=== PATIENT | female | born 1945 | race Two or more races ===

== ENCOUNTER 2021-12-31 14:27 | Inpatient (IN) | payer OTHER ==
[~2021-12-31] VITALS: Ht 165.1 cm; Wt 66.7 kg
[2021-12-31] MEDS ORDERED: COZAAR50 MG (14:55)
[2021-12-31] MEDS ORDERED: ADULT LOW DOSE81 M1 (14:56)
[2022-01-01] MEDS ORDERED: HYDROCHLOROTHIA25 MG (16:23)
[2022-01-01] MEDS ORDERED: PANTOPRAZOLE SO40 MG (16:23)
== END 2022-02-19 18:28 | disposition home or self-care (01) | DRG 329 ==
LOC: ER 14:27 → SURH 22:20 → MEDJ 22:20 → SURH 01-01 02:51
PROVIDERS: Surgery; ADMIT Internal Medicine; ATTEND Internal Medicine
PROC: 30233N1 Transfusion of Nonautologous Red Blood Cells into Peripheral Vein, Percutaneous Approach (ICD-10-PCS; 2022-01-01)
PROC: 02HV33Z Insertion of Infusion Device into Superior Vena Cava, Percutaneous Approach (ICD-10-PCS; 2022-01-02)
PROC: 30243N1 Transfusion of Nonautologous Red Blood Cells into Central Vein, Percutaneous Approach (ICD-10-PCS; 2022-01-02)
PROC: 3E0436Z Introduction of Nutritional Substance into Central Vein, Percutaneous Approach (ICD-10-PCS; 2022-01-05)
PROC: 0D9670Z Drainage of Stomach with Drainage Device, Via Natural or Artificial Opening (ICD-10-PCS; 2022-01-10)
PROC: 0D1B4Z4 Bypass Ileum to Cutaneous, Percutaneous Endoscopic Approach (ICD-10-PCS; principal; 2022-01-30 10:00)
DX: K63.2 Fistula of intestine (principal); N32.1 Vesicointestinal fistula; K57.20 Diverticulitis of large intestine with perforation and abscess without bleeding; K65.1 Peritoneal abscess; N39.0 Urinary tract infection, site not specified; E51.2 Wernicke's encephalopathy; F05 Delirium due to known physiological condition; E86.0 Dehydration; E87.6 Hypokalemia; R53.81 Other malaise; D64.9 Anemia, unspecified; I10 Essential (primary) hypertension; B96.20 Unspecified Escherichia coli [E. coli] as the cause of diseases classified elsewhere
CPT/HCPCS: 70553

== ENCOUNTER 2022-03-11 08:55 | Inpatient (IN) | payer OTHER ==
[~2022-03-11] VITALS: Ht 152.4 cm; Wt 84.4 kg
[~2022-03-11 08:55] MED LIST: ADULT LOW DOSE81 M1; COZAAR50 MG; HYDROCHLOROTHIA25 MG; PANTOPRAZOLE SO40 MG
== END 2022-03-25 09:14 | disposition home or self-care (01) | DRG 682 ==
LOC: ER 08:55 → MEDI 17:27 → MEDJ 03-23 01:43
PROVIDERS: ADMIT Internal Medicine; ATTEND Internal Medicine
PROC: 4A12X4Z Monitoring of Cardiac Electrical Activity, External Approach (ICD-10-PCS; principal; 2022-03-11)
PROC: BW21ZZZ Computerized Tomography (CT Scan) of Abdomen and Pelvis (ICD-10-PCS; 2022-03-11)
DX: N17.8 Other acute kidney failure (principal); A41.89 Other specified sepsis; R65.20 Severe sepsis without septic shock; U07.1 COVID-19; N39.0 Urinary tract infection, site not specified; E87.0 Hyperosmolality and hypernatremia; E51.2 Wernicke's encephalopathy; N32.1 Vesicointestinal fistula; I95.89 Other hypotension; E86.0 Dehydration; I10 Essential (primary) hypertension; B95.62 Methicillin resistant Staphylococcus aureus infection as the cause of diseases classified elsewhere; I25.10 Atherosclerotic heart disease of native coronary artery without angina pectoris; K52.89 Other specified noninfective gastroenteritis and colitis

== ENCOUNTER 2022-08-21 16:20 | Inpatient (IN) | payer OTHER ==
[~2022-08-21] VITALS: Ht 165.1 cm; Wt 45.4 kg
--- NOTE | 2022-08-21 16:37 | NUR ---
PACIENTE ALERTA Y ORIENTADA X3. ACOMPANADA DE DELGADO HIJA CUAL REFIERE QUE DELGADO MADRE TIENE FALTA DE APPETITO DESDE HACE 2 VASQUEZ.
[2022-08-21] MEDS ORDERED: LOPRESSOR25 MG PO (16:40)
--- NOTE | 2022-08-21 18:14 | NUR ---
PTE EVALUADO POR MD MENDOZA ORDENA TX MED SE EDUCA A PTE SOBRE EL MISMO Y REFEIRE ENTNEDER. MS SUDEEP EJECUTA ORDENES BAJO MEDIDAS ACEPTICAS. PTE PEND A RESULTADOS DE LAB.
--- NOTE | 2022-08-21 21:09 | NUR ---
SE CATETERIZA PTE BAJO MEDIDAS ASEPTICAS PARA MUESTRA DE UA SHANTA ORDEN MEDICA,ORINA AMARILLA RICK CON SEDIMENTACION.SE INTENTA EN 2 OCASIONES EXTRAER MUESTRAS DE NORMA SIN EXITO,SE NOTIFICA A DR HITCHCOCK QUIEN ORDENA INCREMENTAR LOS LIQUIDOS.SE EJECUTA ORDEN MEDICA.
[2022-08-24] MEDS ORDERED: DONEPEZIL HCL5 MG (15:15)
[2022-08-24] MEDS ORDERED: THIAMINE HCL100 MG (15:15)
[2022-08-28] MEDS ORDERED: APETIGEN P12.5 MG/15 PO (10:04)
[2022-08-28] MEDS ORDERED: VITAMIN B-121000 MC2 SL (10:05)
== END 2022-08-28 11:00 | disposition home or self-care (01) | DRG 641 ==
LOC: ER 16:20 → MEDI 08-22 19:22
PROVIDERS: ADMIT Internal Medicine; ATTEND Internal Medicine
PROC: BW21ZZZ Computerized Tomography (CT Scan) of Abdomen and Pelvis (ICD-10-PCS; principal; 2022-08-22)
PROC: 4A12X4Z Monitoring of Cardiac Electrical Activity, External Approach (ICD-10-PCS; 2022-08-24)
PROC: B54MZZZ Ultrasonography of Right Upper Extremity Veins (ICD-10-PCS; 2022-08-25)
DX: E86.0 Dehydration (principal); N17.8 Other acute kidney failure; Z68.1 Body mass index [BMI] 19.9 or less, adult; N39.0 Urinary tract infection, site not specified; K63.2 Fistula of intestine; E87.6 Hypokalemia; R63.0 Anorexia; I10 Essential (primary) hypertension; Z93.2 Ileostomy status

== ENCOUNTER 2023-01-30 04:22 | Emergency (ER) | payer OTHER ==
[~2023-01-30] VITALS: Ht 147.3 cm; Wt 59.0 kg
[~2023-01-30 04:22] MED LIST changes: +APETIGEN P12.5 MG/15 PO; +DONEPEZIL HCL5 MG; +LOPRESSOR25 MG PO; +THIAMINE HCL100 MG; +VITAMIN B-121000 MC2 SL
== END 2023-01-30 07:54 | disposition home or self-care (01) ==
LOC: ER 04:22
DX: R10.9 Unspecified abdominal pain (principal); Z85.038 Personal history of other malignant neoplasm of large intestine; Z93.3 Colostomy status

== ENCOUNTER 2023-02-14 09:04 | Outpatient (CLI) | payer OTHER | END 2023-02-14 09:10 | disposition home or self-care (01) | LOC: TOM 09:04 | PROVIDERS: ATTEND Colon & Rectal Surgery | DX: K57.20 Diverticulitis of large intestine with perforation and abscess without bleeding (principal) ==

== ENCOUNTER 2023-10-14 11:52 | Outpatient (CLI) | payer OTHER ==
[2023-10-14 14:39] LABS: CREATININE SERUM 1.52 mg/dL (0.55-1.02)
== END 2023-10-14 11:57 | disposition home or self-care (01) ==
LOC: LAB 11:52
PROVIDERS: ATTEND Radiology Diagnostic Radiology
DX: K57.20 Diverticulitis of large intestine with perforation and abscess without bleeding (principal)

== ENCOUNTER 2023-10-20 09:38 | Outpatient (CLI) | payer OTHER | END 2023-10-20 09:42 | disposition home or self-care (01) | LOC: TOM 09:38 | PROVIDERS: ATTEND Colon & Rectal Surgery | DX: K57.20 Diverticulitis of large intestine with perforation and abscess without bleeding (principal) | CPT/HCPCS: 74177; Q9965 ==

== ENCOUNTER 2024-09-30 14:31 | Inpatient (IN) | payer OTHER ==
[~2024-09-30] VITALS: Ht 162.6 cm; Wt 45.4 kg
--- NOTE | 2024-09-30 15:01 | NUR ---
NUERA ADI PACIENTE PORQUE LA PACIENTE NO QUIERE COMER. LA MISMA CON COLOSTOMIA EN EL LADO DERECHO LA MISMA REFIERE QUE TAMBIEN LA PACIENTE "ESTA EVACUANDO POR EL ANO"
[2024-09-30] MEDS ORDERED: FOLIC ACID (15:57)
[2024-09-30] MEDS ORDERED: PROTONIX40 MG (15:57)
[2024-09-30] MEDS ORDERED: MEMANTINE HCL E28 MG (15:57)
[2024-09-30] MEDS ORDERED: TOPROL XL25 M1 (15:57)
[2024-09-30] MEDS ORDERED: VITAMIN B12500 MCG (15:58)
[2024-09-30] MEDS ORDERED: 0.9 % SODIUM CHLORIDE 500 ML IV STA ×2 (16:19→16:20)
[2024-09-30 17:25] LABS: HEMATOCRIT 37.3 % (36.0-45.00); HEMOGLOBIN 12.2 g/dL (12.0-15.00); MEAN CELL VOLUME 94.2 fL (80.00-100.00); MEAN CORPUSCULAR HEMOGLOBIN 30.7 pg (27.00-32.0); MEAN CORPUSCULAR HGB CONC 32.6 g/dl (32.0-36.0); PLATELET COUNT 204 K/uL (150-450); RED BLOOD COUNT 3.96 M/uL (4.00-6.00); RED CELL DISTRIBUTION WIDTH 14.5 % (11.5-14.5)
--- NOTE | 2024-09-30 17:25 | NUR ---
PTE DESORIENTADA, SE LE BELA MUESTRAS DE LABORATORIO, SE CANALIZA Y SE ADMINISTRAN IV FLUIDS, SE INSERTA CASTRO CATHETER Y SE JO ANN MUESTRA DE ORINA.
[2024-09-30 17:46] LABS: INR 1.11; PARTIAL THROMBOPLASTIN TIME 27.4 SECONDS (22.0-34.0)
[2024-09-30 17:50] LABS: ALBUMIN 2.9 gm/dL (3.4-5.0); BILIRUBIN TOTAL 0.66 mg/dL (0.3-1.2); CALCIUM 9.2 mg/dL (8.5-10.1); CREATININE SERUM 2.14 mg/dL (0.55-1.02); GFR 22.29; GLOBULINA 4.3 G/DL (2.4-3.5); POTASSIUM 5.45 mEq/L (3.5-5.1); TOTAL PROTEIN 7.2 gm/dL (6.4-8.2)
[2024-09-30 18:23] LABS: PH,URINE 5.5 (5.0-8.0); URINE APPEARANCE Cloudy; URINE BILIRRUBIN Negative (NEGATIVE); URINE BLOOD Small; URINE COLOR Dark Yellow; URINE GLUCOSE Negative (NEGATIVE); URINE KETONE Negative (NEGATIVE); URINE LEUKOCYTE Moderate; URINE NITRATE Negative; URINE PROTEIN 30 (NEGATIVE); URINE UROBILINOGEN 0.2 E.U./dl
[2024-09-30 18:27] LABS: URINE CAST 3.53 uL (0.0-1.40); URINE EPITHELIAL CELLS 12.8 uL (0.0-38.8); URINE RBC 26.6 uL (0.0-20.8); URINE WBC 787.6 uL (0.0-23.2)
[2024-09-30 19:01] LABS: URINE BACTERIA > 9821.5 uL (0.0-1933); URINE MUCUS MODERATE
[2024-09-30] MEDS ORDERED: CEFTRIAXONE SODIUM 2,000 MG in 0.9 % SODIUM CHLORIDE 100 ML IV SCH (22:12)
[2024-09-30] MEDS ORDERED: LOPERAMIDE HCL 2 MG CAPSULE PO SCH (22:12)
[2024-09-30] MEDS ORDERED: FAMOTIDINE/PF 20 MG in 0.9 % SODIUM CHLORIDE 8 ML IV PUSH SCH (22:13)
[2024-09-30] MEDS ORDERED: ATORVASTATIN CALCIUM 40 MG TABLET PO SCH (22:13)
[2024-09-30] MEDS ORDERED: ASPIRIN 81 MG TAB.CHEW PO SCH (22:13)
[2024-09-30] MEDS ORDERED: ENOXAPARIN SODIUM 40 MG/0.4 ML SYRINGE SUBCUTANEO SCH (22:14)
[2024-09-30] MEDS ORDERED: 0.9 % SODIUM CHLORIDE 1,000 ML IV SCH (22:15)
[2024-09-30] MEDS ORDERED: ACETAMINOPHEN 500 MG GEL..CAP PO PRN (22:15)
[2024-09-30] MEDS ORDERED: METRONIDAZOLE/SODIUM CHLORIDE 100 ML IV SCH (22:20)
[2024-09-30] MEDS ORDERED: LOPERAMIDE HCL 2 MG CAPSULE PO ONE (23:46)
[2024-09-30] MEDS ORDERED: FAMOTIDINE/PF 20 MG/2 ML VIAL ONE (23:47)
[2024-09-30] MEDS ORDERED: METRONIDAZOLE/SODIUM CHLORIDE 500 MG/100 ML PIGGYBACK IV ONE (23:47)
[2024-09-30] MEDS ORDERED: CEFTRIAXONE SODIUM 2,000 MG VIAL ONE (23:47)
[2024-10-01] VITALS (8 sets, daily range): BP systolic 87–116; BP diastolic 56–68; O2SAT 90–99
[2024-10-01] MEDS ORDERED: METOPROLOL SUCCINATE 25 MG TAB.SR.24H PO SCH (09:00)
[2024-10-01 12:55] LABS: CALCIUM 9.2 mg/dL (8.5-10.1); CREATININE SERUM 1.67 mg/dL (0.55-1.02); GFR 29.67; POTASSIUM 4.67 mEq/L (3.5-5.1); TSH 2.72 uIU/mL (0.358-3.74)
[2024-10-01] MEDS ORDERED: RISPERIDONE 0.5 MG TABLET PO SCH (21:00)
[2024-10-02] VITALS (9 sets, daily range): BP systolic 102–123; BP diastolic 60–70; O2SAT 90–97
[2024-10-02 06:04] LABS: PH,URINE 5.5 (5.0-8.0); URINE APPEARANCE Cloudy; URINE BILIRRUBIN Negative (NEGATIVE); URINE BLOOD Trace; URINE COLOR Yellow; URINE GLUCOSE Negative (NEGATIVE); URINE KETONE Negative (NEGATIVE); URINE LEUKOCYTE Large; URINE NITRATE Negative; URINE PROTEIN Trace (NEGATIVE); URINE UROBILINOGEN 0.2 E.U./dl
[2024-10-02 06:08] LABS: URINE BACTERIA 1527.4 uL (0.0-1933); URINE CAST 3.97 uL (0.0-1.40); URINE EPITHELIAL CELLS 35.9 uL (0.0-38.8); URINE RBC 9.5 uL (0.0-20.8); URINE WBC 922.2 uL (0.0-23.2)
[2024-10-02 06:10] LABS: HEMOGLOBIN 10.2 g/dL (12.0-15.00); MEAN CELL VOLUME 94.1 fL (80.00-100.00); MEAN CORPUSCULAR HEMOGLOBIN 31.1 pg (27.00-32.0); PLATELET COUNT 181 K/uL (150-450); RED CELL DISTRIBUTION WIDTH 14.5 % (11.5-14.5)
[2024-10-02 06:21] LABS: URINE CRYSTALS FEW /HPF
[2024-10-02 06:48] LABS: ALBUMIN 2.3 gm/dL (3.4-5.0); BILIRUBIN TOTAL 0.41 mg/dL (0.3-1.2); C-REACTIVE PROTEIN 9.78 MG/DL (0.00-0.29); CALCIUM 8.5 mg/dL (8.5-10.1); CREATININE SERUM 1.49 mg/dL (0.55-1.02); GFR 33.84; GLOBULINA 3.4 G/DL (2.4-3.5); MAGNESIUM 1.6 mg/dL (1.8-2.4); PHOSPHOROUS 2.5 mg/dL (2.5-4.9); POTASSIUM 4.29 mEq/L (3.5-5.1); TOTAL PROTEIN 5.7 gm/dL (6.4-8.2)
[2024-10-03] VITALS (9 sets, daily range): BP systolic 101–119; BP diastolic 56–66; O2SAT 90–97
[2024-10-03] MEDS ORDERED: MEROPENEM 500 MG/VIAL VIAL IV SCH (09:00)
[2024-10-04] VITALS (7 sets, daily range): BP systolic 118–139; BP diastolic 57–76; O2SAT 90–94
[2024-10-04 07:03] LABS: URINE APPEARANCE Cloudy; URINE BILIRRUBIN Negative (NEGATIVE); URINE BLOOD Negative; URINE COLOR Yellow; URINE GLUCOSE Negative (NEGATIVE); URINE KETONE Negative (NEGATIVE); URINE LEUKOCYTE Trace; URINE NITRATE Negative; URINE PROTEIN Trace (NEGATIVE); URINE UROBILINOGEN 0.2 E.U./dl
[2024-10-04 07:05] LABS: URINE BACTERIA 135.8 uL (0.0-1933); URINE CAST 5.44 uL (0.0-1.40); URINE RBC 53.3 uL (0.0-20.8); URINE WBC 111.7 uL (0.0-23.2)
[2024-10-04 07:21] LABS: URINE CRYSTALS MODERATE /HPF
[2024-10-04 09:57] LABS: ob NEGATIVE (NEGATIVE)
[2024-10-05] VITALS (7 sets, daily range): BP systolic 110–112; BP diastolic 61–64; O2SAT 90–99
[2024-10-05 06:36] LABS: HEMATOCRIT 23.7 % (36.0-45.00); MEAN CELL VOLUME 93.8 fL (80.00-100.00); MEAN CORPUSCULAR HEMOGLOBIN 31.3 pg (27.00-32.0); MEAN CORPUSCULAR HGB CONC 33.4 g/dl (32.0-36.0); PLATELET COUNT 198 K/uL (150-450); RED BLOOD COUNT 2.52 M/uL (4.00-6.00); RED CELL DISTRIBUTION WIDTH 14.9 % (11.5-14.5)
[2024-10-05 07:06] LABS: ALBUMIN 1.8 gm/dL (3.4-5.0); BILIRUBIN TOTAL 0.19 mg/dL (0.3-1.2); CALCIUM 7.8 mg/dL (8.5-10.1); CREATININE SERUM 1.18 mg/dL (0.55-1.02); GFR 44.3; GLOBULINA 2.8 G/DL (2.4-3.5); POTASSIUM 3.46 mEq/L (3.5-5.1); TOTAL PROTEIN 4.6 gm/dL (6.4-8.2)
[2024-10-05 08:02] LABS: HEMOGLOBIN 7.9 g/dL (12.0-15.00)
[2024-10-05] MEDS ORDERED: FUROsemide 20 MG/2 ML VIAL IV PRN (08:30)
[2024-10-05] MEDS ORDERED: FAMOtidine 20 MG TABLET PO SCH (09:00)
[2024-10-05 10:54] LABS: FERRITIN 487.4 NG/ML (8-252)
[2024-10-05 11:54] LABS: FOLIC ACID 19.98 ng/ml (4.78-20)
[2024-10-05 18:45] LABS: FERRITIN 1249.3 NG/ML (8-252)
[2024-10-06] VITALS (9 sets, daily range): BP systolic 119–168; BP diastolic 64–74; O2SAT 94–100
[2024-10-07] VITALS (9 sets, daily range): BP systolic 110–115; BP diastolic 61–63; O2SAT 93–99
[2024-10-07 09:59] LABS: HEMOGLOBIN 13.3 g/dL (12.0-15.00); MEAN CELL VOLUME 92.3 fL (80.00-100.00); MEAN CORPUSCULAR HGB CONC 32.5 g/dl (32.0-36.0); PLATELET COUNT 260 K/uL (150-450); RED BLOOD COUNT 4.44 M/uL (4.00-6.00); RED CELL DISTRIBUTION WIDTH 15.7 % (11.5-14.5)
[2024-10-07 10:39] LABS: ALBUMIN 2.1 gm/dL (3.4-5.0); BILIRUBIN TOTAL 0.34 mg/dL (0.3-1.2); CALCIUM 8.9 mg/dL (8.5-10.1); CREATININE SERUM 1.02 mg/dL (0.55-1.02); GFR 52.41; GLOBULINA 3.3 G/DL (2.4-3.5); PHOSPHOROUS 2.2 mg/dL (2.5-4.9); POTASSIUM 3.79 mEq/L (3.5-5.1); TOTAL PROTEIN 5.4 gm/dL (6.4-8.2)
[2024-10-07 12:25] LABS: MAGNESIUM 1.3 mg/dL (1.8-2.4)
[2024-10-07] MEDS ORDERED: MAGNESIUM SULFATE IN WATER 100 ML IV NR (13:00)
[2024-10-07] MEDS ORDERED: POTASSIUM PHOS,M-BASIC-D-BASIC 15 MM in 0.9 % SODIUM CHLORIDE 250 ML IV ONE (21:30)
[2024-10-07] MEDS ORDERED: SODIUM CHLORIDE 0.45 % 1,000 ML IV SCH (21:30)
[2024-10-08] VITALS (9 sets, daily range): BP systolic 119–170; BP diastolic 60–75; O2SAT 97–100
[2024-10-09] VITALS (10 sets, daily range): BP systolic 116–145; BP diastolic 65–71; O2SAT 94–100
[2024-10-09] MEDS ORDERED: VITAMIN B COMPLEX/LYSINE 15 ML BLIST.PACK PO SCH (09:00)
[2024-10-09 13:40] LABS: HEMATOCRIT 40.5 % (36.0-45.00); HEMOGLOBIN 13.3 g/dL (12.0-15.00); MEAN CELL VOLUME 92.4 fL (80.00-100.00); MEAN CORPUSCULAR HEMOGLOBIN 30.3 pg (27.00-32.0); MEAN CORPUSCULAR HGB CONC 32.8 g/dl (32.0-36.0); PLATELET COUNT 265 K/uL (150-450); RED BLOOD COUNT 4.38 M/uL (4.00-6.00); RED CELL DISTRIBUTION WIDTH 15.3 % (11.5-14.5)
[2024-10-09 18:51] LABS: BILIRUBIN TOTAL 0.36 mg/dL (0.3-1.2); CALCIUM 8.2 mg/dL (8.5-10.1); CREATININE SERUM 1.04 mg/dL (0.55-1.02); GFR 51.25; GLOBULINA 3.3 G/DL (2.4-3.5); POTASSIUM 4.27 mEq/L (3.5-5.1); TOTAL PROTEIN 5.3 gm/dL (6.4-8.2)
[2024-10-10] VITALS (8 sets, daily range): BP systolic 114–160; BP diastolic 52–75; O2SAT 97–100
[2024-10-10] MEDS ORDERED: NA PHOS,M-B/NA PHOS,DI-BA 1 BOTTLE ENEMA RECTAL STA (09:46)
[2024-10-10] MEDS ORDERED: MIDAZOLAM HCL 2 MG/2 ML VIAL IV ONE (14:15)
[2024-10-11 00:33] VITALS: BP 122/58; O2SAT 98
[2024-10-11 04:46] VITALS: O2SAT 100
[2024-10-11] MEDS ORDERED: APETIGEN P12.5 MG/15 PO (07:32)
[2024-10-11] MEDS ORDERED: LIPITOR40 M1 PO (07:32)
[2024-10-11] MEDS ORDERED: INTESTINEX680 M1 PO (07:33)
[2024-10-11 08:39] VITALS: BP 110/62; O2SAT 100
== END 2024-10-11 10:30 | disposition home or self-care (01) | DRG 393 ==
LOC: ER 14:34 → MEDI 22:14
PROVIDERS: Emergency Medicine; General Practice; Internal Medicine; Internal Medicine Infectious Disease; Internal Medicine Nephrology; ADMIT Internal Medicine; ATTEND Internal Medicine
PROC: 4A12X4Z Monitoring of Cardiac Electrical Activity, External Approach (ICD-10-PCS; 2024-10-01)
PROC: 8E0ZXY6 Isolation (ICD-10-PCS; 2024-10-03)
PROC: BW3GZZZ Magnetic Resonance Imaging (MRI) of Pelvic Region (ICD-10-PCS; 2024-10-05)
PROC: BW3GYZZ Magnetic Resonance Imaging (MRI) of Pelvic Region using Other Contrast (ICD-10-PCS; 2024-10-05)
PROC: 30233N1 Transfusion of Nonautologous Red Blood Cells into Peripheral Vein, Percutaneous Approach (ICD-10-PCS; 2024-10-06)
PROC: 0DJD8ZZ Inspection of Lower Intestinal Tract, Via Natural or Artificial Opening Endoscopic (ICD-10-PCS; principal; 2024-10-10)
DX: K94.19 Other complications of enterostomy (principal); I21.A1 Myocardial infarction type 2; N17.9 Acute kidney failure, unspecified; K57.32 Diverticulitis of large intestine without perforation or abscess without bleeding; N39.0 Urinary tract infection, site not specified; E87.0 Hyperosmolality and hypernatremia; D62 Acute posthemorrhagic anemia; K92.1 Melena; Z68.1 Body mass index [BMI] 19.9 or less, adult; K52.89 Other specified noninfective gastroenteritis and colitis; E86.0 Dehydration; I51.7 Cardiomegaly; D64.9 Anemia, unspecified; E83.42 Hypomagnesemia; E83.39 Other disorders of phosphorus metabolism; N85.00 Endometrial hyperplasia, unspecified; D49.59 Neoplasm of unspecified behavior of other genitourinary organ; D25.9 Leiomyoma of uterus, unspecified; K64.0 First degree hemorrhoids; R63.0 Anorexia; I12.9 Hypertensive chronic kidney disease with stage 1 through stage 4 chronic kidney disease, or unspecified chronic kidney disease; N18.9 Chronic kidney disease, unspecified; B96.20 Unspecified Escherichia coli [E. coli] as the cause of diseases classified elsewhere; Z74.01 Bed confinement status
CPT/HCPCS: 72198